=== PATIENT | male | born 1965 | race Caucasian/White ===

== ENCOUNTER 2020-11-03 12:13 | Observation (INO) | payer OTHER ==
[~2020-11-03] VITALS: Ht 167.6 cm; Wt 54.4 kg
[~2020-11-03 12:13] MED LIST: ASPIRIN CHEWABL81 MG PO; BUSPIRONE HCL5 MG PO; DOXYCYCLINE MO100 MG PO; LISINOPRIL40 MG PO; PLAVIX 75 MG TA75 MG PO; PREDNISONE 1 MG1 MG GT; SERTRALINE HCL50 MG PO; TESSALON PERLE100 MG PO; VENTOLIN HFA 66.7 GM INH
[2020-11-03 13:10] LABS: HEMOGLOBIN 14.8 gm/dl (14.0-17.5); RED BLOOD COUNT 4.68 M/UL (4.20-5.50)
[2020-11-03 13:46] LABS: BUN/CREATININE RATIO 18 (0-10)
[2020-11-03] MEDS ORDERED: CREON DR 36,001 EACH PO ×2 (15:26→15:27)
[2020-11-03] MEDS ORDERED: ZESTRIL 40 MG T40 MG PO (15:26)
[2020-11-03] MEDS ORDERED: PROAIR HFA8.5 GM INH (15:31)
[2020-11-03] MEDS ORDERED: BREO ELLIPTA 11 EACH INH (15:33)
--- NOTE | 2020-11-03 17:58 | NUR ---
DR. JASSO NOTIFIED ABOUT PTS HIGH BP 175/111, ORDER GIVEN FOR LISINOPRIL 40MG PO, WILL RECHECK BP AND MONITOR
[2020-11-04 02:30] LABS: HEMOGLOBIN 13.5 gm/dl (14.0-17.5); RED BLOOD COUNT 4.27 M/UL (4.20-5.50)
[2020-11-04 02:35] LABS: WHITE BLOOD COUNT 11.1 K/UL (4.5-11.0)
[2020-11-04 02:56] LABS: BUN/CREATININE RATIO 21 (0-10)
[2020-11-04] MEDS ORDERED: NITROGLYCERIN0.4 MG SL (09:24)
[2020-11-04] MEDS ORDERED: ASPIRIN EC81 MG PO (09:24)
--- NOTE | 2020-11-04 10:47 | NUR ---
INSTRUCTED PATIENT ON IMPORTANCE OF KEEPING APPOINTMENTS. STOP DRUG USE, CHECK SELF INTO REHAB PREVIOUSLY DISCUSSED. PATIENT STATED GOING TO DO. Jay CASE
== END 2020-11-04 15:11 | disposition home or self-care (01) ==
LOC: ER1 12:13 → M/S 14:49 → CDU 14:49 → M/S 16:12
PROVIDERS: Physician Assistant; Physician Assistant Medical; ADMIT Internal Medicine
DX: R07.9 Chest pain, unspecified (principal); E78.5 Hyperlipidemia, unspecified; I10 Essential (primary) hypertension; I25.10 Atherosclerotic heart disease of native coronary artery without angina pectoris; J44.9 Chronic obstructive pulmonary disease, unspecified; F17.210 Nicotine dependence, cigarettes, uncomplicated; F19.10 Other psychoactive substance abuse, uncomplicated; Z20.822 Contact with and (suspected) exposure to COVID-19; Z95.5 Presence of coronary angioplasty implant and graft; Z88.0 Allergy status to penicillin; Z79.899 Other long term (current) drug therapy; Z59.0 Homelessness
CPT/HCPCS: 36415; 70450; 71045; 80048; 80053; 81001; 82550; 82553; 83690; 83735; 83874; 84484; 85025; 85027; 85379; 93005; 94640; 94664; 94760; 96374; 99285; G0378; G0480; J2060; J7030; U0002